=== PATIENT | female | born 1955 | race Hispanic/Latino ===

== ENCOUNTER 2017-09-28 21:02 | Inpatient (IN) | payer BC ==
--- NOTE | 2017-09-28 22:20 | ED PDOC ---
Arrival/HPI - General Chief Complaint: Abdominal Pain Time Seen by Provider: 09/28/17 21:41 Historian: Patient - History of Present Illness Narrative History of Present Illness (Text): 09/28/17 22:19 Leatha Perez is a 61 year old female, whose past medical history includes hypertension, UTIs, pyelonephritis, and ovarian cysts, who presents to the Emergency department complaining of abdominal pain/back pain. Patient states she has been experiencing abdominal pain with associated diarrhea and dysuria since yesterday, worsening today. Patient denies any fever, chills, chest pain, shortness of breath, nausea, vomiting, neck pain, headache, dizziness, or any other complaints. Time/Duration: Other (yesterday) Symptom Onset: Gradual Symptom Course: Unchanged Activities at Onset: Light Context: Home Past Medical History - Provider Review Nursing Documentation Reviewed: Yes - Cardiac Hx Cardiac Disorders: Yes Hx Hypertension: Yes - Pulmonary Hx Respiratory Disorders: No - Neurological Hx Neurological Disorder: Yes Hx Migraine: Yes - HEENT Hx HEENT Disorder: No - Renal Hx Renal Disorder: Yes Hx Pyelonephritis: Yes - Endocrine/Metabolic Hx Endocrine Disorders: Yes Other/Comment: prediabetic - Hematological/Oncological Hx Blood Disorders: No - Integumentary Hx Dermatological Disorder: No - Musculoskeletal/Rheumatological Hx Musculoskeletal Disorders: Yes Hx Arthritis: Yes - Gastrointestinal Hx Gastrointestinal Disorders: No - Genitourinary/Gynecological Hx Genitourinary Disorders: Yes Hx Urinary Tract Infection: Yes - Psychiatric Hx Psychophysiologic Disorder: No Hx Substance Use: No - Surgical History Other/Comment: ovarian cyst, breast cyst I&D Family/Social History - Physician Review Nursing Documentation Reviewed: Yes Family/Social History: Unknown Family HX Smoking Status: Never Smoked Hx Alcohol Use: No Hx Substance Use: No Allergies/Home Meds Allergies/Adverse Reactions: Allergies ciprofloxacin [From Cipro] Adverse Reaction (Verified 09/28/17 21:29) VOMITING levofloxacin [From Levaquin] Adverse Reaction (Verified 09/28/17 22:49) VOMITING Penicillins Adverse Reaction (Verified 09/28/17 21:29) VOMITING Home Medications: Home Meds Medication Instructions Recorded Confirmed Dexlansoprazole [Dexilant] 20 mg PO BID 09/28/17 09/28/17 Ibuprofen [Motrin Tab] 800 mg PO DAILY 09/28/17 09/28/17 Metoprolol Tartrate [Lopressor] 25 mg PO DAILY 09/28/17 09/28/17 Olmesartan/Hydrochlorothiazide 1 tab PO DAILY 09/28/17 09/28/17 [Benicar Hct 12.5 mg-20 mg] Review of Systems - Physician Review All systems were reviewed & negative as marked: Yes - Review of Systems Constitutional: Normal. absent: Fevers Eyes: Normal ENT: Normal Respiratory: Normal. absent: SOB, Cough Cardiovascular: Normal. absent: Chest Pain Gastrointestinal: Abdominal Pain, Diarrhea. absent: Nausea, Vomiting Genitourinary Female: Dysuria. absent: Hematuria, Urine Output Changes Musculoskeletal: Normal. absent: Back Pain, Neck Pain Skin: Normal. absent: Rash Neurological: Normal. absent: Headache, Dizziness Endocrine: Normal Hemo/Lymphatic: Normal Psychiatric: Normal Physical Exam Vital Signs Reviewed: Yes Vital Signs Temp Pulse Resp BP Pulse Ox 09/29/17 01:10 78 16 117/62 96 09/28/17 23:33 73 18 138/72 95 09/28/17 21:31 98.9 F 79 18 122/78 97 Temperature: Afebrile Blood Pressure: Normal Pulse: Regular Respiratory Rate: Normal Appearance: Positive for: Well-Appearing, Non-Toxic, Comfortable Pain Distress: None Mental Status: Positive for: Alert and Oriented X 3 - Systems Exam Head: Present: Atraumatic, Normocephalic Pupils: Present: PERRL Extroacular Muscles: Present: EOMI Conjunctiva: Present: Normal Mouth: Present: Moist Mucous Membranes Neck: Present: Normal Range of Motion Respiratory/Chest: Present: Clear to Auscultation, Good Air Exchange. No: Respiratory Distress, Accessory Muscle Use Cardiovascular: Present: Regular Rate and Rhythm, Normal S1, S2. No: Murmurs Abdomen: Present: Tenderness (mid/suprapubic), Normal Bowel Sounds. No: Distention, Peritoneal Signs Back: Present: Normal Inspection, CVA Tenderness Upper Extremity: Present: Normal Inspection. No: Cyanosis, Edema Lower Extremity: Present: Normal Inspection. No: Edema Neurological: Present: GCS=15, CN II-XII Intact, Speech Normal Skin: Present: Warm, Dry, Normal Color. No: Rashes Psychiatric: Present: Alert, Oriented x 3, Normal Insight, Normal Concentration Medical Decision Making ED Course and Treatment: 09/28/17 22:19 Impression: 61 year old female complaining of diffuse abdominal pain, diarrhea, and dysuria since yesterday. Plan: -- CT Abdomen and Pelvis with IV contrast -- Labs, lipase -- Urinalysis, urine cultures -- IV fluids -- Toradol -- Pepcid -- Reassess and disposition Progress Notes: 09/29/17 01:30 Reviewed radiology, CT Abdomen and Pelvis shows: Lower thorax: Heart size is normal. There is dependent atelectasis at the lung bases. ABDOMEN: Liver: unremarkable Gallbladder and bile ducts: unremarkable Pancreas: unremarkable Spleen: Spleen is unremarkable. There is an accessory spleen in the left upper quadrant. Adrenals: unremarkable Kidneys and ureters: There are no focal renal abnormalities. There is mild thickening of left renal pelvic mucosa. There is mild proximal ureteral mucosal thickening. There is no pelvocaliectasis or ureterectasis Stomach and bowel: Stomach is almost empty. Rotation is normal. Small bowel is partially distended with fluid and air. There is no obstruction. Ileocecal region is unremarkable. Appendix and terminal ileum are unremarkable.Colon is incompletely distended which limits evaluation. Appendix: See stomach and bowel PELVIS: Bladder: Bladder is partially distended. There is mild bladder wall thickening and inflammation. Reproductive: Uterus and adnexal structures are unremarkable. ABDOMEN and PELVIS: Intraperitoneal space: There is no free air or free fluid. Bones/joints: There are degenerative changes in the osseus structures. Soft tissues: unremarkable Vasculature: Vascular structures are unremarkable. There is minimal atherosclerotic change. Lymph nodes: There is no pathologic adenopathy. IMPRESSION: Findings suggest cystitis and urinary tract infection 09/29/17 01:[address] Dash, who is aware and agrees with plan. Accepts pt in to his service. Pt admitted to [facility] observation for pyelonephritis. 09/29/17 01:48 Case discussed with quality engineer medical device cotton classer, who is aware and agrees with plan. - Lab Interpretations Lab Results: 09/28/17 22:47 09/28/17 22:47 Lab Results 09/28/17 22:47: Urine Color Yellow, Urine Appearance Sl cloudy, Urine pH 6.0, Ur Specific [place] 1.010, Urine Protein Trace H, Urine Glucose (UA) Negative, Urine Ketones Negative, Urine Blood Large H, Urine Nitrate Positive H, Urine Bilirubin Negative, Urine Urobilinogen 0.2, Ur Leukocyte Esterase Moderate H, Urine RBC 2 - 5, Urine WBC Tntc, Ur Epithelial Cells 0 - 2, Urine Bacteria Mod 09/28/17 22:47: WBC 12.5 H, RBC 4.75, Hgb 12.6, Hct 39.2, MCV 82.5, MCH 26.5, MCHC 32.1, RDW 14.8 H, Plt Count 237, MPV 9.7 09/28/17 22:47: Sodium 137, Potassium 3.7, Chloride 99, Carbon Dioxide 26, Anion Gap 16, BUN 15, Creatinine 0.6 L, Est GFR ( Amer) > 60, Est GFR ( Non-Af Amer) > 60, Random Glucose 113 H, Calcium 9.6, Total Bilirubin 0.6, AST 27, ALT 33, Alkaline Phosphatase 53, Total Protein 7.5, Albumin 4.2, Globulin 3.3, Albumin/Globulin Ratio 1.3, Lipase 129 I have reviewed the lab results: Yes - RAD Interpretation Radiology Orders: 09/28/17 22:27 ABD & PELVIS IV CONTRAST ONLY [CT] Stat President Celebrity Acquistion: Radiologist - Medication Orders Current Medication Orders: Aztreonam (Azactam 1 Gm) 100 mls @ 100 mls/hr IVPB STAT STA PRN Reason: Protocol Stop: 09/29/17 02:38 Vancomycin HCl (Vancomycin 1gm) 1 gm in 250 mls @ 167 mls/hr IVPB STAT STA PRN Reason: Protocol Stop: 09/29/17 03:16 Sodium Chloride (Sodium Chloride 0.9%) 1,000 mls @ 100 mls/hr IV .Q10H ANG Discontinued Medications Famotidine (Pepcid) 20 mg IVP STAT STA Stop: 09/28/17 22:28 Last Admin: 09/28/17 22:51 Dose: 20 mg IVP Administration Document 09/28/17 22:51 CNR (Rec: 09/28/17 22:[address] [id number] Charges for Administration # of IVP Administrations 1 Sodium Chloride (Sodium Chloride 0.9%) 1,000 mls @ 999 mls/hr IV .Q1H1M STA Stop: 09/28/17 23:27 Last Admin: 09/28/17 22:51 Dose: 999 mls/hr eMAR Start Stop Document 09/28/17 22:51 CNR (Rec: 09/28/17 22:52 CNR [id number] Intravenous Solution Start Date 09/28/17 Start Time 22:51 Ketorolac Tromethamine (Toradol) 30 mg IVP ONCE ONE Stop: 09/28/17 22:28 Last Admin: 09/28/17 22:52 Dose: 30 mg MAR Pain Assessment Document 09/28/17 22:52 CNR (Rec: 09/28/17 22:[address] [facility] [id number] Pain Reassessment Is this a pain reassessment? Yes IVP Administration Document 09/28/17 22:52 CNR (Rec: 09/28/17 22:52 CNR [id number] Charges for Administration # of IVP Administrations 1 - Scribe Statement The provider has reviewed the documentation as recorded by the Scribe Portia Alvarez All medical record entries made by the Scribe were at my direction and personally dictated by me. I have reviewed the chart and agree that the record accurately reflects my personal performance of the history, physical exam, medical decision making, and the department course for this patient. I have also personally directed, reviewed, and agree with the discharge instructions and disposition. Disposition/Present on Arrival - Present on Arrival Any Indicators Present on Arrival: No History of DVT/PE: No History of Uncontrolled Diabetes: No Urinary Catheter: No History of Decub. Ulcer: No History Surgical Site Infection Following: None - Disposition Have Diagnosis and Disposition been Completed?: Yes Diagnosis: Pyelonephritis Disposition: HOSPITALIZED Disposition Time: :42 Patient Plan: Admission Patient Problems: Current Active Problems Problem Status Onset Pyelonephritis Acute Condition: GOOD Forms: [employer] (Swedish)
[2017-09-28] MEDS ORDERED: Sodium Chloride 0.9% 1,000 ML IV STA (22:27)
[2017-09-28 22:53] LABS: HEMOGLOBIN 12.6 g/dL (12.0-16.0); MEAN CELL VOLUME 82.5 fl (80.0-105.0); MEAN CORPUSCULAR HEMOGLOBIN 26.5 pg (25.0-35.0); MEAN CORPUSCULAR HGB CONC 32.1 g/dl (31.0-37.0); MEAN PLATELET VOLUME 9.7 fl (7.0-11.0); RBC 4.75 10^6/uL (3.5-6.1); RED CELL DISTRIBUTION WIDTH 14.8 % (11.5-14.5); URINE BILIRUBIN NEGATIVE (NEGATIVE); URINE BLOOD LARGE (NEGATIVE); URINE GLUCOSE (UA) NEGATIVE (NEGATIVE); URINE LEUKOCYTE ESTERASE MODERATE Leu/uL (NEGATIVE); URINE NITRATE POSITIVE (NEGATIVE); URINE PROTEIN TRACE mg/dL (<30 mg/dL); URINE UROBILINOGEN 0.2 E.U./dL (<1 E.U./dL); WHITE BLOOD COUNT 12.5 10^3/ul (4.5-11.0)
[2017-09-28 22:56] LABS: URINE APPEARANCE SL CLOUDY (CLEAR); URINE COLOR YELLOW (YELLOW)
[2017-09-28 23:04] LABS: ALB/GLOB RATIO 1.3 (1.1-1.8); ALBUMIN 4.2 g/dL (3.0-4.8); ALT/SGPT 33 U/L (7-56); AST/SGOT 27 U/L (14-36); BLOOD UREA NITROGEN 15 mg/dL (7-21); CALCIUM 9.6 mg/dL (8.4-10.5); GFR AFRICAN-AMERICAN > 60; GFR NON-AFRICAN AMERICAN > 60; LIPASE 129 U/L (23-300)
[2017-09-28 23:30] LABS: URINE BACTERIA MOD (NEG); URINE EPITHELIAL CELLS 0 - 2 /hpf (0-5); URINE WBC TNTC /hpf (0-6)
[2017-09-28] MEDS ORDERED: Iohexol 350 MG/100 ML VIAL ONE (23:31)
--- NOTE | 2017-09-29 00:39 | CT ---
EXAM: CT Abdomen and Pelvis With Intravenous Contrast EXAM DATE/TIME: 09/28/2017 10:27 PM CLINICAL HISTORY: 61 years old, female; Pain; Abdominal pain; Localized; Other: Bilateral flank pain TECHNIQUE: Axial computed tomography images of the abdomen and pelvis with intravenous contrast. All CT scans at this facility use one or more dose reduction techniques, viz.: automated exposure control; ma/kV adjustment per patient size (including targeted exams where dose is matched to indication; i.e. head); or iterative reconstruction technique. Coronal and sagittal reformatted images were created and reviewed. CONTRAST: 94 mL of OMNIPAQUE 350 administered intravenously. COMPARISON: There are no prior studies for comparison. FINDINGS: Lower thorax: Heart size is normal. There is dependent atelectasis at the lung bases. ABDOMEN: Liver: unremarkable Gallbladder and bile ducts: unremarkable Pancreas: unremarkable Spleen: Spleen is unremarkable. There is an accessory spleen in the left upper quadrant. Adrenals: unremarkable Kidneys and ureters: There are no focal renal abnormalities. There is mild thickening of left renal pelvic mucosa. There is mild proximal ureteral mucosal thickening. There is no pelvocaliectasis or ureterectasis. Stomach and bowel: Stomach is almost empty. Rotation is normal. Small bowel is partially distended with fluid and air. There is no obstruction. Ileocecal region is unremarkable. Appendix and terminal ileum are unremarkable.Colon is incompletely distended which limits evaluation. Appendix: See stomach and bowel PELVIS: Bladder: Bladder is partially distended. There is mild bladder wall thickening and inflammation. Reproductive: Uterus and adnexal structures are unremarkable. ABDOMEN and PELVIS: Intraperitoneal space: There is no free air or free fluid. Bones/joints: There are degenerative changes in the osseus structures. Soft tissues: unremarkable Vasculature: Vascular structures are unremarkable. There is minimal atherosclerotic change. Lymph nodes: There is no pathologic adenopathy. IMPRESSION: Findings suggest cystitis and urinary tract infection
[2017-09-29] MEDS ORDERED: Aztreonam 1 Gm in NS 100mL 100 ML IVPB STA (01:39)
[2017-09-29] MEDS ORDERED: Vancomycin 1gm in NS 250ml 1 GM/250 ML BAG IVPB STA (01:47)
[2017-09-29] MEDS: Sodium Chloride 0.9% 1,000 ML IV SCH ×3 (02:08→21:25)
--- NOTE | 2017-09-29 06:18 | CP.PCM.HP ---
History of Present Illness - History of Present Illness History of Present Illness: Chief complaint: Suprapubic pain which radiates to flanks bilaterally HPI: Patient is a 61 year old female with a past medical history significant for NIDDM, hypertension, pyelonephritis, and ovarian cysts. Patient states two days ago she began noticing she had pain while urinating associated with lower abdominal pain. She states she took dexilant and this helped relieved her pain for some time. According to patient the following day she began noticing increased pain with urination and radiation of suprapubic pain to bilateral flanks which was similar to the symptoms she experienced in the past when she was treated for pyelonephritis at [facility]. She tried to take dexilant but states it did not relieve her pain this time. Admits to 4 episodes of non bloody diarrhea. Patient denies discharge, fevers, cough, shortness of breath, chest pain headache. PMD: Dr. Carbone Past surgical history: ovarian cyst removal Social history:denies tobacco, alcohol, illicit drug use Medications: check MAR Family history: non contributory Present on Admission - Present on Admission Any Indicators Present on Admission: No Review of Systems - Constitutional Constitutional: Chills. absent: Fever, Headache - EENT Eyes: absent: Blurred Vision, Change in Vision Ears: absent: Ear Discharge, Ear Pain - Cardiovascular Cardiovascular: Leg Edema. absent: Chest Pain, Diaphoresis, Dyspnea - Respiratory Respiratory: absent: Cough, Dyspnea - Gastrointestinal Gastrointestinal: Diarrhea. absent: Cramping, Nausea, Vomiting - Genitourinary Genitourinary: Dysuria, Urinary Frequency. absent: Urinary Incontinence - Musculoskeletal Musculoskeletal: Back Pain. absent: Atrophy - Neurological Neurological: absent: Dizziness, Numbness - Psychiatric Psychiatric: absent: Anxiety - Endocrine Endocrine: absent: Polyphagia, Polyuria - Hematologic/Lymphatic Hematologic: absent: Easy Bleeding, Easy Bruising Past Patient History - Past Social History Smoking Status: Never Smoked - CARDIAC Hx Cardiac Disorders: Yes Hx Hypertension: Yes - PULMONARY Hx Respiratory Disorders: No - NEUROLOGICAL Hx Neurological Disorder: Yes Hx Migraine: Yes - HEENT Hx HEENT Problems: No - RENAL Hx Chronic Kidney Disease: Yes Hx Pyelonephritis: Yes - ENDOCRINE/METABOLIC Hx Endocrine Disorders: Yes Other/Comment: prediabetic - HEMATOLOGICAL/ONCOLOGICAL Hx Blood Disorders: No - INTEGUMENTARY Hx Dermatological Problems: No - MUSCULOSKELETAL/RHEUMATOLOGICAL Hx Musculoskeletal Disorders: Yes Hx Arthritis: Yes Hx Falls: No - GASTROINTESTINAL Hx Gastrointestinal Disorders: No - GENITOURINARY/GYNECOLOGICAL Hx Genitourinary Disorders: Yes Hx Urinary Tract Infection: Yes - PSYCHIATRIC Hx Psychophysiologic Disorder: No Hx Substance Use: No - SURGICAL HISTORY Hx Surgeries: Yes Other/Comment: ovarian cyst, breast cyst I&D Meds Allergies/Adverse Reactions: Allergies Allergy/AdvReac Type Severity Reaction Status Date / Time ciprofloxacin [From Cipro] AdvReac VOMITING Verified 09/28/17 21:29 levofloxacin [From Levaquin] AdvReac VOMITING Verified 09/28/17 22:49 Penicillins AdvReac VOMITING Verified 09/28/17 21:29 Physical Exam - Constitutional Appears: Non-toxic, No Acute Distress - Head Exam Head Exam: ATRAUMATIC, NORMAL INSPECTION, NORMOCEPHALIC - Eye Exam Eye Exam: EOMI, Normal appearance - ENT Exam ENT Exam: Mucous Membranes Moist - Neck Exam Neck exam: Positive for: Normal Inspection - Respiratory Exam Respiratory Exam: Clear to Auscultation Bilateral, NORMAL BREATHING PATTERN. absent: Rhonchi, Wheezes - Cardiovascular Exam Cardiovascular Exam: REGULAR RHYTHM, +S1, +S2 - GI/Abdominal Exam GI & Abdominal Exam: Normal Bowel Sounds, Soft, Tenderness (suprapubic) - Extremities Exam Extremities exam: Positive for: normal inspection - Back Exam Back exam: CVA tenderness (L), CVA tenderness (R), NORMAL INSPECTION. absent: rash noted - Neurological Exam Neurological exam: Alert, CN II-XII Intact, Oriented x3 - Psychiatric Exam Psychiatric exam: Normal Affect, Normal Mood - Skin Skin Exam: Intact, Normal Color, Warm Results - Vital Signs Recent Vital Signs: Last Vital Signs Temp 98.6 F 09/29/17 03:34 Pulse 68 09/29/17 03:34 Resp 18 09/29/17 03:34 BP 110/62 09/29/17 03:34 Pulse Ox 99 09/29/17 02:17 - Labs Result Diagrams: 09/28/17 22:47 09/28/17 22:47 Assessment & Plan - Assessment and Plan (Free Text) Assessment: Patient is a 61 year old female with a past medical history significant for NIDDM, hypertension, pyelonephritis, and ovarian cysts. Patient states two days ago she began noticing she had pain while urinating associated with lower abdominal pain. Plan: Pyelonephritis -CT reveals findings suggest cystitis and urinary tract infection -Infectious disease consulted; recommendations appreciated -Urology consulted; recommendations appreciated -Aztreonam started due to patient's allergy with fluoroquinolones and penicillins -Monitor WBC and vitals -Follow up with blood and urine cultures Hypertension -Monitor BP -Metoprolol continued NIDDM -ISS-low -q6 ACHS -Diabetic diet Headache -Tylenol PRN DVT/GI prophylaxis heparin/protonix
[2017-09-29] MEDS ORDERED: Aztreonam 1 Gm in NS 100mL 100 ML IVPB SCH (07:00)
[2017-09-29] MEDS: Insulin Reg-LOW-Coverage SC SCH ×4 (08:17→21:37)
[2017-09-29] MEDS ORDERED: Propofol 10 mg/ml Inj (20 ML) ONE (09:18)
[2017-09-29] MEDS: Meropenem IV 1 gm in NS 50 ML IVPB SCH ×3 (13:12→21:29)
--- NOTE | 2017-09-29 15:17 | CON ---
DATE: 09/29/2017 LOCATION: The patient is in room 245, bed 1. CHIEF COMPLAINT: Weakness times several days. HISTORY OF PRESENT ILLNESS: This is a 61-year-old female with past medical history significant for pelvic pain and A 61-year-old female with diabetes, hypertension, history of ovarian cyst, history of pyelonephritis, little bit abdominal pain, and low-grade fever. No chills. No chest pain. No shortness of breath, no cough. Minimal dysuria and frequency. No headaches. PAST MEDICAL HISTORY: Significant for history of pyelonephritis, ovarian cyst, hypertension, diabetes, migraine headaches, and history of arthritis. PAST SURGICAL HISTORY: Noncontributory. MEDICATIONS: The patient at home is on metformin, metoprolol, and ibuprofen. ALLERGIES: THE PATIENT IS ALLERGIC TO CIPRO, LEVAQUIN, AND PENICILLIN. PHYSICAL EXAMINATION: VITAL SIGNS: Temperature is 98, heart rate of 78, respiratory rate of 18, and blood pressure is 107/60. HEENT: Unremarkable. NECK: Supple. LUNGS: Have decreased breath sounds. HEART: Normal S1 and S2. ABDOMEN: Soft and nontender. No rebound. No guarding. LABORATORY DATA: Reveals white count of 12,500, hemoglobin of 12, and platelets of 237. Chemistries reveals BUN of 15, creatinine of 0.6, and glucose is 113. Urinalysis revealed too numerous to count WBCs. The patient had a CAT scan of the abdomen and pelvis, suggestive of cystitis, urine tract infection. History and physical examination is reviewed. Emergency Room chart is reviewed. ASSESSMENT AND PLAN: A 61-year-old female with diabetes, hypertension, ovarian cyst, pyelonephritis, and migraine with: 1. Urinary tract infection, leukocytosis, and pyelonephritis: Blood urine cultures are pending. HIV has been ordered. Hepatitis profile has been ordered. We will discontinue Azactam and treat the patient with meropenem. The patient has ALLERGIC REACTION TO PENICILLIN, has questionable vomiting, , no shortness of breath and no rash. We will also add doxycycline and discontinue the IV vancomycin. Case was discussed with Dr. Dash who has considered to manage STDs and PID. We will add the doxycycline pending the Chlamydia workup, and we will follow closely with you. CAT scan is reviewed. Mor Manzanares MD [facility] # [id number]
--- NOTE | 2017-09-29 15:53 | US ---
HISTORY: abd pain, burning with urination COMPARISON: None. TECHNIQUE: Grayscale imaging was. FINDINGS: LIVER: Measures 14 point cm. Normal echogenicity of the liver parenchyma. No mass. No intrahepatic bile duct dilatation. GALLBLADDER: The gallbladder is contracted due to nonfasting status. No wall thickening or pericholecystic fluid. The sonographic Medley's sign is negative. . COMMON BILE DUCT: Measures 4.7 mm. No stones. No dilatation. PANCREAS: Unremarkable as visualized. No mass. No ductal dilatation. RIGHT KIDNEY: Measures 10.7cm. Normal echogenicity. No calculus, mass, or hydronephrosis. LEFT KIDNEY: Measures 11.4cm. Normal echogenicity. No calculus, mass, or hydronephrosis. SPLEEN: Normal in size and contour. No mass. AORTA: No aneurysmal dilatation. IVC: Unremarkable. OTHER FINDINGS: None. IMPRESSION: Gallbladder is contracted due to nonfasting status. Allowing for this, no cholelithiasis or biliary dilatation.
--- NOTE | 2017-09-29 15:59 | US ---
HISTORY: Abdominal pain, burning with urination COMPARISON: None available. TECHNIQUE: Transabdominal and transvaginal pelvic ultrasound was performed FINDINGS: UTERUS: Measures 7.4 x 4.0 x 6.0 cm. Anteverted and normal in size. There is a 2.3 x 2.6 x 3.0 cm calcified posterior fundal fibroid. ENDOMETRIUM: Measures 3.2 mm in diameter. Evaluation is limited due to large posterior fibroid. CERVIX: No cervical abnormality identified. RIGHT OVARY: Not visualized. LEFT OVARY: Measures 2.1 x 1.3 x 1.2 cm. No solid mass. Normal flow. FREE FLUID: No significant free fluid noted. OTHER FINDINGS: None. IMPRESSION: 1. 3.0 cm calcified posterior fundal fibroid. 2. The right ovary is not visualized. No adnexal mass a left ovarian cyst.
[2017-09-29 17:04] LABS: HEPATITIS B SURFACE AG Negative (NEGATIVE)
[2017-09-29 17:10] LABS: HEPATITIS A IGM NEGATIVE (NEGATIVE); HEPATITIS B CORE AB NEGATIVE (NEGATIVE)
[2017-09-29 17:22] LABS: HEPATITIS C ANTIBODY NEGATIVE (NEGATIVE)
[2017-09-30 04:53] VITALS: RESP 18; TEMP 98.1; O2SAT 98
[2017-09-30] MEDS: Meropenem IV 1 gm in NS 50 ML IVPB SCH ×3 (05:01→21:31)
[2017-09-30] MEDS: Sodium Chloride 0.9% 1,000 ML IV SCH ×3 (05:02→17:53)
[2017-09-30 07:21] LABS: BASO # 0.01 K/mm3 (0.0-2.0); BASO % 0.2 % (0.0-3.0); EOS # 0.1 (0.0-0.7); GRAN # 2.21 (1.4-6.5); GRAN % 44.1 % (50.0-68.0); HEMOGLOBIN 11.7 g/dL (12.0-16.0); LYMPH # 2.3 (1.2-3.4); LYMPH % 46.7 % (22.0-35.0); MEAN CELL VOLUME 82.7 fl (80.0-105.0); MEAN CORPUSCULAR HGB CONC 31.5 g/dl (31.0-37.0); MEAN PLATELET VOLUME 9.6 fl (7.0-11.0); MONO # 0.4 (0.1-0.6); RBC 4.5 10^6/uL (3.5-6.1); RED CELL DISTRIBUTION WIDTH 15.4 % (11.5-14.5)
[2017-09-30 07:44] LABS: ALB/GLOB RATIO 1.2 (1.1-1.8); ALBUMIN 3.4 g/dL (3.0-4.8); ALT/SGPT 28 U/L (7-56); AST/SGOT 23 U/L (14-36); BLOOD UREA NITROGEN 11 mg/dL (7-21); CALCIUM 8.9 mg/dL (8.4-10.5); GFR AFRICAN-AMERICAN > 60; GFR NON-AFRICAN AMERICAN > 60
--- NOTE | 2017-09-30 08:01 | CP.PCM.PN ---
Subjective - Date & Time of Evaluation Date of Evaluation: 09/30/17 Time of Evaluation: 07:30 - Subjective Subjective: (covering for Dr. Dash) Patient is admitted with pyelonephritis and urinary tract infection. This morning, she complains of epigastric pain and dysuria. Objective - Vital Signs/Intake and Output Vital Signs (last 24 hours): Temp Pulse Resp BP Pulse Ox 98.1 F 63 18 136/89 98 09/30/17 04:51 09/30/17 04:51 09/30/17 04:51 09/30/17 04:51 09/30/17 04:51 - Medications Medications: Current Medications Acetaminophen (Tylenol 325mg Tab) 650 mg PO Q6H PRN PRN Reason: Fever >100.4 F Last Admin: 09/29/17 21:36 Dose: 650 mg Doxycycline Hyclate (Doryx) 100 mg PO Q12 [facility] PRN Reason: Protocol Last Admin: 09/29/17 21:29 Dose: 100 mg Heparin Sodium (Porcine) (Heparin) 5,000 units SC Q12 ANG PRN Reason: Protocol Last Admin: 09/29/17 21:29 Dose: 5,000 units Sodium Chloride (Sodium Chloride 0.9%) 1,000 mls @ 100 mls/hr IV .Q10H [facility] Last Admin: 09/30/17 05:02 Dose: 100 mls/hr Meropenem (Merrem Iv 1 Gm Premix) 50 mls @ 100 mls/hr IVPB Q8 ANG PRN Reason: Protocol Stop: 10/09/17 12:46 Last Admin: 09/30/17 05:01 Dose: 100 mls/hr Insulin Human Regular (Humulin R Low) 0 units SC ACHS ANG PRN Reason: Protocol Last Admin: 09/29/17 21:37 Dose: Not Given Metoprolol Tartrate (Lopressor) 25 mg PO DAILY [facility] Last Admin: 09/29/17 09:54 Dose: 25 mg Pantoprazole Sodium (Protonix Inj) 40 mg IVP DAILY [facility] Last Admin: 09/29/17 09:54 Dose: 40 mg Pneumococcal Polyvalent Vaccine (Pneumovax 23 Vaccine) 0.5 ml IM .ONCE ONE Stop: 10/01/17 10:01 - Labs Labs: 09/30/17 06:45 09/30/17 06:45 APTT 26.9 Seconds (25.1-36.5) 09/29/17 07:40 - Constitutional Appears: No Acute Distress - Head Exam Head Exam: ATRAUMATIC, NORMOCEPHALIC - Respiratory Exam Respiratory Exam: Clear to Ausculation Bilateral, NORMAL BREATHING PATTERN - Cardiovascular Exam Cardiovascular Exam: +S1, +S2 - GI/Abdominal Exam GI & Abdominal Exam: Soft, Tenderness, Normal Bowel Sounds - Extremities Exam Extremities Exam: absent: Pedal Edema - Neurological Exam Neurological Exam: Alert, Awake, Oriented x3 Assessment and Plan - Assessment and Plan (Free Text) Assessment: Pyelonephritis Urinary Tract infection DMII Hypertension Migraine GERD Plan: CAT scan shows findings consistent with cystitis and proximal thickening of left renal pelvis mucosa. Awaiting urology consultation. Patient is allergic to penicillin and is on IV meropenem as per infectious disease. HIV is negative; chlamydia is pending. Awaiting results of urine culture. continue protonix for gastroesophageal reflux.
[2017-09-30] MEDS: Insulin Reg-LOW-Coverage SC SCH ×4 (08:15→21:37)
--- NOTE | 2017-09-30 08:15 | HP ---
ADDENDUM The patient is a 61-year-old female. The patient came to the [facility] Emergency Room with complaints of abdominal pain, dysuria, and painful urination. The patient was seen and examined by the ophthalmic medical technologist in room 245. Please refer to the detailed history and physical examination, ER visit evaluation for further details of admission. The patient's diagnostic data, vital signs, and all lab reports reviewed. IMPRESSION: 1. Urinary tract infection. 2. Possible pyelonephritis. 3. Dysuria. 4. History of hypertension. 5. History of recurrent urinary tract infection. 6. History of ovarian cyst. 7. History of pyelonephritis. 8. Abdominal pain and back pain with dysuria. 9. History of diabetes mellitus. 10. Bibasilar atelectasis. 11. Accessory spleen. 12. Mild thickening of the left renal pelvic mucosa. 13. Proximal ureteral mucosal thickening. 14. Cystitis with bladder wall thickening and inflammation. 15. Contracted gallbladder. 16. Asymptomatic hypotension versus hypovolemia. 17. Leukocytosis. 18. Trace proteinuria, hematuria, bacteriuria, and pyuria. 19. History of hypertension. 20. History of gastroesophageal reflux. 21. History of [id number] diabetes mellitus. 22. Enlarged posterior fibroid. 23. Nonvisualized right ovary. 24. A 3-cm calcified posterior fundal fibroid. 25. History of migraine. 26. History of prediabetes. 27. History of breast cyst. 28. History of degenerative joint disease. PLAN: At this time, the patient was admitted to [facility]. Repeat labs ordered. HIV ordered, hepatitis serology is ordered, and blood urine cultures ordered. CONSULTATIONS: Infectious Disease and Urology. CURRENT MEDICATIONS: Doxycycline 100 mg q.12 hours, heparin 500 subcutaneously q.8 hours, regular insulin sliding scale coverage a.c. and at bedtime, Lopressor 25 mg daily, the patient is on meropenem 1 g IV q.8 hours, Protonix 40 mg daily, IV fluid 0.9 normal saline at 100 mL an hour, and Tylenol 650 q.6 hours p.r.n. Please refer to the detailed history and physical examination of ophthalmic medical technologist for complete details of the history and physical examination. The patient is examined with the ophthalmic medical technologist in room 245. The patient is examined, vital signs, lab data, all diagnostic details, and therapeutic intervention orders reviewed. Dictated and electronically signed, not read. Norberto Dash MD
--- NOTE | 2017-09-30 19:07 | CP.PCM.PN ---
Subjective - Date & Time of Evaluation Date of Evaluation: 09/30/17 Time of Evaluation: 10:25 - Subjective Subjective: Comfortable in bed, no flank pain currently. No fevers. Objective - Vital Signs/Intake and Output Vital Signs (last 24 hours): Temp Pulse Resp BP Pulse Ox 98.1 F 70 18 133/75 98 09/30/17 04:51 09/30/17 09:41 09/30/17 04:51 09/30/17 09:41 09/30/17 04:51 - Medications Medications: Current Medications Acetaminophen (Tylenol 325mg Tab) 650 mg PO Q6H PRN PRN Reason: Fever >100.4 F Last Admin: 09/30/17 09:44 Dose: 650 mg Doxycycline Hyclate (Doryx) 100 mg PO Q12 ANG PRN Reason: Protocol Last Admin: 09/30/17 09:40 Dose: 100 mg Heparin Sodium (Porcine) (Heparin) 5,000 units SC Q12 ANG PRN Reason: Protocol Last Admin: 09/30/17 09:40 Dose: 5,000 units Sodium Chloride (Sodium Chloride 0.9%) 1,000 mls @ 100 mls/hr IV .Q10H [facility] Last Admin: 09/30/17 17:53 Dose: 100 mls/hr Meropenem (Merrem Iv 1 Gm Premix) 50 mls @ 100 mls/hr IVPB Q8 ANG PRN Reason: Protocol Stop: 10/09/17 12:46 Last Admin: 09/30/17 14:22 Dose: 100 mls/hr Insulin Human Regular (Humulin R Low) 0 units SC ACHS ANG PRN Reason: Protocol Last Admin: 09/30/17 16:09 Dose: Not Given Metoprolol Tartrate (Lopressor) 25 mg PO DAILY [facility] Last Admin: 09/30/17 09:41 Dose: 25 mg Pantoprazole Sodium (Protonix Ec Tab) 40 mg PO ACB ANG Pneumococcal Polyvalent Vaccine (Pneumovax 23 Vaccine) 0.5 ml IM .ONCE ONE Stop: 10/01/17 10:01 - Labs Labs: 09/30/17 06:45 09/30/17 06:45 APTT 26.9 Seconds (25.1-36.5) 09/29/17 07:40 - Constitutional Appears: Non-toxic - Head Exam Head Exam: NORMAL INSPECTION - ENT Exam ENT Exam: Mucous Membranes Moist - Neck Exam Neck Exam: absent: Meningismus - Respiratory Exam Respiratory Exam: Decreased Breath Sounds - Cardiovascular Exam Cardiovascular Exam: +S1, +S2 - GI/Abdominal Exam GI & Abdominal Exam: Soft. absent: Tenderness Assessment and Plan - Assessment and Plan (Free Text) Plan: Assessment UTI with gram negative bacilli DM HTN ovarian cyst history of migraines Plan Continue Merrem pending identification and sensitivities of the GNB in the urine ; follow up Chlamydia test result and continue Doxycycline for now will continue to monitor clinically
[2017-10-01] MEDS: Meropenem IV 1 gm in NS 50 ML IVPB SCH ×2 (05:41→13:42)
[2017-10-01] MEDS: Sodium Chloride 0.9% 1,000 ML IV SCH (05:43)
[2017-10-01 06:55] LABS: BASO # 0.01 K/mm3 (0.0-2.0); BASO % 0.2 % (0.0-3.0); EOS # 0.1 (0.0-0.7); EOS % 1.8 % (1.5-5.0); GRAN # 3.67 (1.4-6.5); HEMOGLOBIN 11.5 g/dL (12.0-16.0); LYMPH # 2.4 (1.2-3.4); LYMPH % 36.8 % (22.0-35.0); MEAN CELL VOLUME 81.2 fl (80.0-105.0); MEAN CORPUSCULAR HEMOGLOBIN 25.7 pg (25.0-35.0); MEAN CORPUSCULAR HGB CONC 31.7 g/dl (31.0-37.0); MEAN PLATELET VOLUME 9.9 fl (7.0-11.0); MONO # 0.3 (0.1-0.6); MONO % 5.2 % (1.0-6.0); RBC 4.47 10^6/uL (3.5-6.1); RED CELL DISTRIBUTION WIDTH 15.2 % (11.5-14.5); WHITE BLOOD COUNT 6.6 10^3/ul (4.5-11.0)
[2017-10-01 06:59] LABS: ALB/GLOB RATIO 1.1 (1.1-1.8); ALBUMIN 3.3 g/dL (3.0-4.8); ALT/SGPT 37 U/L (7-56); AST/SGOT 24 U/L (14-36); BLOOD UREA NITROGEN 15 mg/dL (7-21); CALCIUM 8.9 mg/dL (8.4-10.5); GFR AFRICAN-AMERICAN > 60; GFR NON-AFRICAN AMERICAN > 60
[2017-10-01] MEDS ORDERED: Pantoprazole 40 mg EC Tab PO SCH (07:30)
[2017-10-01] MEDS: Insulin Reg-LOW-Coverage SC SCH ×3 (07:43→17:53)
[2017-10-01] MEDS ORDERED: Promethazine/Cod 6.25mg-10mg/5ml Syr UD PO PRN (08:05)
--- NOTE | 2017-10-01 08:11 | CP.PCM.PN ---
Subjective - Date & Time of Evaluation Date of Evaluation: 10/01/17 Time of Evaluation: 07:45 - Subjective Subjective: (covering for Dr. Dash) Patient is seen this morning. She is complaining of dry cough. She says that she has some mild suprapubic pain and flank pain. Objective - Vital Signs/Intake and Output Vital Signs (last 24 hours): Temp Pulse Resp BP Pulse Ox 98.1 F 70 18 133/75 98 09/30/17 04:51 09/30/17 09:41 09/30/17 04:51 09/30/17 09:41 09/30/17 04:51 Intake and Output: 10/01/17 10/01/17 06:59 18:59 Intake Total 1200 Balance 1200 - Medications Medications: Current Medications Acetaminophen (Tylenol 325mg Tab) 650 mg PO Q6H PRN PRN Reason: Fever >100.4 F Last Admin: 09/30/17 09:44 Dose: 650 mg Doxycycline Hyclate (Doryx) 100 mg PO Q12 ANG PRN Reason: Protocol Last Admin: 09/30/17 21:32 Dose: 100 mg Heparin Sodium (Porcine) (Heparin) 5,000 units SC Q12 ANG PRN Reason: Protocol Last Admin: 09/30/17 21:32 Dose: 5,000 units Sodium Chloride (Sodium Chloride 0.9%) 1,000 mls @ 100 mls/hr IV .Q10H [facility] Last Admin: 10/01/17 05:43 Dose: 100 mls/hr Meropenem (Merrem Iv 1 Gm Premix) 50 mls @ 100 mls/hr IVPB Q8 ANG PRN Reason: Protocol Stop: 10/09/17 12:46 Last Admin: 10/01/17 05:41 Dose: 100 mls/hr Insulin Human Regular (Humulin R Low) 0 units SC ACHS ANG PRN Reason: Protocol Last Admin: 09/30/17 21:37 Dose: Not Given Metoprolol Tartrate (Lopressor) 25 mg PO DAILY [facility] Last Admin: 09/30/17 09:41 Dose: 25 mg Pantoprazole Sodium (Protonix Ec Tab) 40 mg PO ACB ANG Pneumococcal Polyvalent Vaccine (Pneumovax 23 Vaccine) 0.5 ml IM .ONCE ONE Stop: 10/01/17 10:01 Promethazine HCl/Codeine (Phenergan/Codeine Oral Syrup) 5 ml PO Q4H PRN PRN Reason: Cough and congestion - Labs Labs: 10/01/17 06:30 10/01/17 06:30 APTT 26.9 Seconds (25.1-36.5) 09/29/17 07:40 - Constitutional Appears: No Acute Distress - Head Exam Head Exam: ATRAUMATIC, NORMOCEPHALIC - Respiratory Exam Respiratory Exam: Clear to Ausculation Bilateral, NORMAL BREATHING PATTERN - Cardiovascular Exam Cardiovascular Exam: REGULAR RHYTHM, +S1, +S2 - GI/Abdominal Exam GI & Abdominal Exam: Soft, Normal Bowel Sounds. absent: Tenderness - Extremities Exam Extremities Exam: Normal Inspection - Neurological Exam Neurological Exam: Alert, Awake, CN II-XII Intact, Oriented x3 Assessment and Plan - Assessment and Plan (Free Text) Assessment: Pyelonephritis/UTI with GNR Diabetes mellitus Hypertension Migraine Left ovarian cyst Plan: Patient is complaining of cough this morning. Will order phenergan with codeine every 4 hours as needed for cough. continue IV merrem and oral doxycycline for urinary tract infection and pyelonephritis. Urine culture is growing gram negative rods. Awaiting identification and sensitivity. HIV and hepatitis panel are negative.
[2017-10-01 09:42] VITALS: BP 120/65; PULSE 89
[2017-10-01] MEDS ORDERED: Pneumococcal 23-Valent Vaccine IM ONE (10:00)
[2017-10-01] MEDS ORDERED: Tmp-Smz 800 mg-160 mg DS Tab PO SCH (15:13)
[2017-10-01] MEDS ORDERED: Lactobacillus Acidophilus 500 MU Cap PO SCH (15:30)
--- NOTE | 2017-10-01 19:47 | PN ---
DATE: 10/01/2017 SUBJECTIVE: The patient is in bed in no acute distress, nontoxic. PHYSICAL EXAMINATION VITAL SIGNS: Temperature is 98, blood pressure is 130/80, respiratory rate of 18 and heart rate of 63. HEENT: Unremarkable. NECK: Supple. LUNGS: Had decreased breath sounds. HEART: Normal S1 and S2. ABDOMEN: Soft and nontender. LABORATORY DATA: Reveals a white count of 6.6, hemoglobin of 11 and platelets of 223. Chemistry reveals a BUN of 15 and creatinine of 0.5. Urinalysis is noted and serology is noted. HIV is negative, hepatitis C is negative. Microbiology is noted. There is E. coli in the urine and E. coli in the urine is now sensitive organism and is sensitive to quinolone and sensitive to Bactrim and only thing that it is resistant is to ampicillin. The blood cultures are no growth. ALLERGIES: THE PATIENT IS ALLERGIC TO PENICILLIN AND LEVAQUIN. MEDICATIONS: Currently on meropenem. ASSESSMENT AND PLAN: This is a 61-year-old female seen earlier today in [facility], bed 1 with pansensitive Escherichia coli, urinary tract infection and diabetes, hypertension, ovarian cyst, history of migraine. May be able to switch the p.o. Bactrim double strength p.o. times 5 to 7 days upon discharge. The patient also on p.o. doxycycline. We will complete 5 to 7 upon discharge. Mor Manzanares MD
== END 2017-10-01 19:00 | disposition home or self-care (01) | DRG 690 ==
LOC: ED 21:02 → ERH 09-29 01:43 → 2A 09-29 02:50
PROVIDERS: ADMIT Internal Medicine; ATTEND Internal Medicine
DX: N12 Tubulo-interstitial nephritis, not specified as acute or chronic (principal); E11.22 Type 2 diabetes mellitus with diabetic chronic kidney disease; K82.0 Obstruction of gallbladder; Q89.09 Congenital malformations of spleen; N30.90 Cystitis, unspecified without hematuria; J98.11 Atelectasis; B96.20 Unspecified Escherichia coli [E. coli] as the cause of diseases classified elsewhere; I12.9 Hypertensive chronic kidney disease with stage 1 through stage 4 chronic kidney disease, or unspecified chronic kidney disease; N18.9 Chronic kidney disease, unspecified; N83.202 Unspecified ovarian cyst, left side; G43.909 Migraine, unspecified, not intractable, without status migrainosus; K21.9 Gastro-esophageal reflux disease without esophagitis; T36.0X5A Adverse effect of penicillins, initial encounter; Z79.899 Other long term (current) drug therapy; Z87.440 Personal history of urinary (tract) infections; D25.9 Leiomyoma of uterus, unspecified; M19.90 Unspecified osteoarthritis, unspecified site; Z88.1 Allergy status to other antibiotic agents; Z88.0 Allergy status to penicillin; R40.2412 Glasgow coma scale score 13-15, at arrival to emergency department

== ENCOUNTER 2018-11-30 13:27 | Outpatient (CLI) | payer BC | END 2018-11-30 13:28 | disposition home or self-care (01) | LOC: RAD 13:28 ==